=== PATIENT | female | born 1995 | race African-American/Black ===

== ENCOUNTER 2020-08-10 13:19 | Emergency (ER) | payer SELFPAY ==
[~2020-08-10] VITALS: Ht 162.6 cm; Wt 68.0 kg
[2020-08-10] MEDS ORDERED: IBUP-2029 MT (13:40)
[2020-08-10 14:00] VITALS: BP 110/71
== END 2020-08-10 15:35 | disposition home or self-care (01) ==
LOC: ER 13:19
DX: S39.82XA Other specified injuries of lower back, initial encounter (principal); V49.49XA Driver injured in collision with other motor vehicles in traffic accident, initial encounter; Y93.89 Activity, other specified; Y92.488 Other paved roadways as the place of occurrence of the external cause
CPT/HCPCS: 99282

== ENCOUNTER 2020-08-14 12:54 | Emergency (ER) | payer SELFPAY ==
[~2020-08-14] VITALS: Ht 162.6 cm; Wt 68.0 kg
[~2020-08-14 12:54] MED LIST: IBUP-2029 MT
[2020-08-14] MEDS ORDERED: KETOROLAC 30MG/ML VIAL IM ONE (13:30)
[2020-08-14 15:15] VITALS: BP 123/65
== END 2020-08-14 15:15 | disposition home or self-care (01) ==
LOC: ER 12:54
DX: G50.1 Atypical facial pain (principal); M54.5 Low back pain; S90.01XA Contusion of right ankle, initial encounter; V49.9XXA Car occupant (driver) (passenger) injured in unspecified traffic accident, initial encounter; Z98.890 Other specified postprocedural states; Y93.9 Activity, unspecified; Y92.410 Unspecified street and highway as the place of occurrence of the external cause
CPT/HCPCS: 72100; 99283

== ENCOUNTER 2021-02-14 22:22 | Emergency (ER) | payer MEDICAID ==
[~2021-02-14] VITALS: Ht 167.6 cm; Wt 55.0 kg
[2021-02-15] MEDS ORDERED: ONDANSETRON 4MG ODT PO ONE (00:30)
[2021-02-15 01:00] VITALS: BP 118/63
[2021-02-15] MEDS ORDERED: IBUPROFEN 600MG TABLET PO ONE (01:00)
== END 2021-02-15 01:30 | disposition home or self-care (01) ==
LOC: ER 22:22
DX: U07.1 COVID-19 (principal); Z98.890 Other specified postprocedural states
CPT/HCPCS: 99283; C9803; Q0162; U0003; U0005

== ENCOUNTER 2022-07-19 22:07 | Emergency (ER) | payer MEDICAID ==
[~2022-07-19] VITALS: Ht 162.6 cm; Wt 71.6 kg
[2022-07-19 23:16] LABS: BASOPHILS % 1.1 % (0.0-2.0); EOSINOPHILS % 1.2 % (0.0-5.0); HEMATOCRIT. 33.5 % (36.0-48.0); HEMOGLOBIN. 10.6 g/dL (12.0-16.0); LYMPHOCYTES % 30.2 % (20.0-50.0); MEAN CORPUSCULAR VOLUME 85.6 fL (81.0-99.0); MEAN PLATELET VOLUME 7.8 fl (7.4-10.4); MONOCYTES % 8.2 % (2.0-8.0); NEUTROPHILS % 59.3 % (40.0-76.0); PLATELET 386 x1000/uL (130-400); RED BLOOD CELL COUNT 3.92 mill/uL (4.2-5.4); RED CELL DISTRIBUTION WIDTH 17.8 % (11.6-14.6)
[2022-07-19 23:17] LABS: CHLORIDE 111 mEq/L (98-107)
[2022-07-19 23:26] LABS: HCG SCREEN NEGATIVE
[2022-07-20 02:13] VITALS: BP 121/78
[2022-07-20] MEDS ORDERED: MEDR10TA11 PO (02:14)
[2022-07-20] MEDS ORDERED: MEDR10TA11 MT (02:14)
== END 2022-07-20 07:41 | disposition home or self-care (01) ==
LOC: ER 22:07
DX: N93.9 Abnormal uterine and vaginal bleeding, unspecified (principal)
CPT/HCPCS: 36415; 76830; 76856; 80053; 84703; 85025; 86850; 86900; 99284